=== PATIENT | male | born 1965 | race Caucasian/White ===

== ENCOUNTER 2022-09-24 04:01 | Inpatient (IN) | payer OTHER ==
[~2022-09-24] VITALS: Ht 177.8 cm; Wt 102.6 kg
[2022-09-24 04:20] LABS: BASOPHILS ABSOLUTE AUTO 0.05 K/mm3 (0.00-0.23); BASOPHILS PERCENT AUTO 1 % (0-2); EOSINOPHILS ABSOLUTE AUTO 0.11 K/mm3 (0.00-0.68); EOSINOPHILS PERCENT AUTO 1 % (0-6); Hematocrit 46.8 % (37.0-53.0); Hemoglobin 17.4 g/dL (13.5-17.5); IMMATURE GRAN PERCENT AUTO 1 % (0-1); LYMPHOCYTES PERCENT AUTO 31 % (21-46); MONOCYTES ABSOLUTE AUTO 0.77 K/mm3 (0.16-1.47); MONOCYTES PERCENT AUTO 10 % (4-13); Mean Corpuscular HGB 33.7 pg (26.0-34.0); Mean Corpuscular HGB Conc 37.2 g/dL (31.5-36.5); Mean Corpuscular Volume 91 fL (80-100); Mean Platelet Volume 10.2 fL (9.1-12.4); NEUTROPHILS ABSOLUTE AUTO 4.42 K/mm3 (1.96-9.15); NEUTROPHILS PERCENT AUTO 56 % (41-73); Platelet Count 163 K/mm3 (150-400); RDW Coefficient Variation 12.1 % (11.7-14.2); RDW Standard Deviation 40.1 fL (35.1-46.3); Red Blood Cell Count 5.17 M/mm3 (4.30-5.90); White Blood Cell Count 7.85 K/mm3 (4.00-11.30)
[2022-09-24 04:47] LABS: Albumin, Blood 3.6 g/dL (3.4-5.0); Bilirubin, Total 0.7 mg/dL (0.1-1.0); Bun/Creatinine Ratio 14.5 (12.0-20.0); Calcium, Blood 9.4 mg/dL (8.5-10.1); Creatinine, Blood 0.76 mg/dL (0.60-1.20); Globulin, Blood 3.5 g/dL (2.2-4.0); Potassium, Blood 3.7 mmol/L (3.5-5.5); Total Protein, Blood 7.1 g/dL (6.4-8.2)
[2022-09-24 05:41] LABS: CHOL/HDL RATIO 9.9; Cholesterol 218 mg/dL (50-200); HDL Cholesterol 22 mg/dL (>39); LDL/HDL RATIO Unable to Calculate; Low Density Lipoprotein Chol Unable to Calculate mg/dL (0-110); Triglycerides 1120 mg/dL (30-160); Very Low Density Lipoprot Chol 224 mg/dL (6-32)
[2022-09-24 05:52] LABS: LDL Direct Measurement 69 mg/dL (0-130)
--- NOTE | 2022-09-24 18:28 | NUR ---
SHIFT SUMMARY: PT A&O X3-4. PT HAS BEEN VERY PLEASANT AND COOPERATIVE THIS SHIFT. PT ARRIVED EARLY DAY SHIFT WITH DX OF CVA. PT HAS RIGHT SIDED DEFICITS WITH SOME R. SIDED FACIAL DROOP AND MUMBLED SPEECH. PT RECEIVED ST/PT/PT THIS SHIFT. PT ON REGULAR DIET WITH THICKENED LIQUIDS. PT HAVING TROUBLE SWALLOWING WITH THIN LIQUIDS. MEDS WHOLE IN APPLESAUCE. PT RECEIVED DUPLEX AND ECHO THIS SHIFT. PT TO RECEIVE MRI. MRI SCREENING FORM COMPLETED. IN ROOM THIS SHIFT HELPING WITH PT CARE. STATING SHE WOULD LIKE TO STAY THE NIGHT. 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 PT HYPERTENSIVE. PT HAD BLOOD SUGARS IN 300'S. HELD BREAKFAST AND LUNCH INSULIN DUE TO NPO STATUS AND RECEIVING INSULIN PEN TOO CLOSE TO LUNCH DOSE. PT 2 PERSON ASSIST. VERY WEAK. CALL LIGHT IN REACH. BED IN LOWEST POSITION. WILL CONTINUE TO MONITOR.
--- NOTE | 2022-09-24 21:24 | NUR ---
HS CBG WAS 365 MG/DL. RUNNING >300MG/DL THROUGHOUT DAY. PT HX OF PREDIABETES. CALLED TO NOTIFY HOSPITALIST DR. NGUYỄN. ORDERED 2100 DAILY DOSE OF INSULIN LANTUS TO START NOW WELL INCREASE IN HUMALOG SLIDING SCALE FROM LOW CORRECTION TO MEDIUM CORRECTION. ORDERS ENTERED. WILL NOTIFY PATIENT.
--- NOTE | 2022-09-25 03:49 | NUR ---
SHIFT UNREMARKABLE. PT HS CBG CHECK WAS 365 MG/DL. ADMINISTERED HUMALOG PER SLIDING SCALE AND NOTIFIED HOSPITALIST. SEE RELATED NOTE FOR DETAILS. SHIFT OTHERWISE NOT NOTEWORTHY. PT HAS SLEPT THROUGH MOST OF SHIFT. PT HAS REMAINED IN ROOM THROUGHOUT SHIFT TO STAY WITH PATIENT AND ASSIST WITH HIS BASIC NEEDS PRN. PT DENIES ANY PAIN OF ANY KIND. HAS BEEN RESTING COMFORTABLY. CALL LIGHT LEFT WITHIN REACH.
[2022-09-25 05:57] LABS: Albumin, Blood 3.4 g/dL (3.4-5.0); Anion Gap 7 mmol/L (6-16); Blood Urea Nitrogen 10 mg/dL (8-24); Bun/Creatinine Ratio 12.8 (12.0-20.0); CO2, Blood 25 mmol/L (21-32); Calcium, Blood 9.3 mg/dL (8.5-10.1); Chloride, Blood 104 mmol/L (98-108); Creatinine, Blood 0.78 mg/dL (0.60-1.20); Glomerular Filtration Rate 103 (60-); Glucose, Blood 285 mg/dL (70-99); Phosphorus, Blood 2.4 mg/dL (2.5-4.9); Potassium, Blood 3.1 mmol/L (3.5-5.5); Sodium, Blood 136 mmol/L (136-145)
--- NOTE | 2022-09-25 18:03 | NUR ---
SHIFT SUMMARY- PT IS A/O PLESANT AND COOPERATIVE. AT BEDSIDE MOST OF THIS SHIFT. PT WENT FOR AN MRI THIS SHIFT. HE WORKED WITH PT AND TOLORATED WELL. HE IS DOING EXCERCISES WITH THROUGHOUT THIS SHIFT. HIS BED IS IN THE LOW POSITON AND CALL LIGHT IS WITIN REACH. BLOOD SUGARS WERE ELEVATED. INSTRUCTED PT ON ADMINISTERING INSULIN TO HIMSELF. PLACED DIETITION CONSULT TO DISCUSS ADA.
--- NOTE | 2022-09-26 04:16 | NUR ---
SHIFT SUMMARY; NO ACUTE CHANGES OVERNIGHT. THE PT IS AXO X4 AND A 1 ASSIST. THE PTS IS AT BEDSIDE THIS SHIFT AND HAS BEEN HELPING THE PT TO USE THE BATHROOM. THE PT IS AXO X4, SPEECH IS MUMBLED AND THE PT IS VERY SOFT SPOKEN. I DEMONSTRATED TO THE PT AND THE PTS HOW TO USE INSULIN PENS THIS SHIFT. CONTINUE TO REINFORCE EDUCATION. THE PT HAS BEEN SLEEPING FOR THE ENTIRETY OF THE NIGHT. THE PT DENIES ANY SOB, CHEST PAIN/PRESSURE OR PAIN THIS SHIFT. CURRENTLY THE PT IS SLEEPING IN BED WITH THE BED IN THE LOWEST POSITION AND THE CALL LIGHT AT BEDSIDE.
[2022-09-26 06:52] LABS: Albumin, Blood 3.4 g/dL (3.4-5.0); Anion Gap 5 mmol/L (6-16); Blood Urea Nitrogen 14 mg/dL (8-24); Bun/Creatinine Ratio 16.8 (12.0-20.0); CO2, Blood 26 mmol/L (21-32); Calcium, Blood 9.2 mg/dL (8.5-10.1); Chloride, Blood 105 mmol/L (98-108); Creatinine, Blood 0.83 mg/dL (0.60-1.20); Glomerular Filtration Rate 101 (60-); Glucose, Blood 281 mg/dL (70-99); Potassium, Blood 3.1 mmol/L (3.5-5.5); Sodium, Blood 136 mmol/L (136-145)
--- NOTE | 2022-09-26 13:01 | NUR ---
AT BEDSIDE, VERY HELPFUL WITH CARE, TO POSSIBLY BE DISCHARGED TODAY WITH HOME HEALTH, ALERT AND ORIENTED X4, NO DISTRESS, NO ACUTE NEEDS, CALL LIGHT WITH IN REACH
[2022-09-26] MEDS ORDERED: ATOR80 PO (15:14)
[2022-09-26] MEDS ORDERED: ASPI81CH PO (15:14)
[2022-09-26] MEDS ORDERED: CLOP75 PO (15:14)
[2022-09-26] MEDS ORDERED: HUMALOG KW100 UNIT/1 SC (15:15)
[2022-09-26] MEDS ORDERED: BASAGLAR K100 UNIT/1 SC (15:15)
[2022-09-26] MEDS ORDERED: Prinivil10 MG PO (15:16)
== END 2022-09-26 17:41 | disposition home health service (06) | DRG 65 ==
LOC: ER 04:01 → MEDS 06:31 → ERHOLD 06:31 → MEDS 06:45
PROVIDERS: Emergency Medicine; Family Medicine; Internal Medicine; ADMIT Student in an Organized Health Care Education/Training Program
DX: I63.81 Other cerebral infarction due to occlusion or stenosis of small artery (principal); E87.1 Hypo-osmolality and hyponatremia; G81.91 Hemiplegia, unspecified affecting right dominant side; E11.9 Type 2 diabetes mellitus without complications; I10 Essential (primary) hypertension; R29.810 Facial weakness; R47.81 Slurred speech; E78.1 Pure hyperglyceridemia; R29.702 NIHSS score 2; F17.210 Nicotine dependence, cigarettes, uncomplicated; R47.1 Dysarthria and anarthria; E78.5 Hyperlipidemia, unspecified; E87.6 Hypokalemia; Z90.49 Acquired absence of other specified parts of digestive tract; Z98.890 Other specified postprocedural states
CPT/HCPCS: 36415; 70450; 70496; 70498; 70551; 80053; 80061; 80069; 82947; 83036; 83721; 85025; 92526; 92610; 93005; 93010; 93306; 93926; 97110; 97112; 97116; 97161; 97166; 97530; 97535; 99285-25; A9270; J1650; J1815; Q9967